=== PATIENT | female | born 1940 | race Caucasian/White ===

== ENCOUNTER → 2016-03-18 | Outpatient (CLI) | payer OTHER ==
--- NOTE | 2016-03-18 12:31 | MA ---
Screening Digital Mammogram With iCAD Analysis Clinical Indications: Routine screening. The patient has a personal history of right breast cancer t reated with lumpectomy and radiation. She has had a benign left breast biopsy. A sister was diagnosed with breast cancer in her 50s and 2 aunts were also diagnosed with breast cancer. Technique: Standard cephalocaudal and mediolateral oblique projections were obtained. This examinatio n was processed by the iCAD computer-aided detection system. Comparison: February 2015, February 2014, February 2013, February 2012, February 2011, February 2010, 2009. Breast density: Type B; Scattered fibroglandular densities. Findings: CAD was reviewed. Architectural change at the right breast lumpectomy site is stable. No m asses, suspicious calcifications or other signs of malignancy are identified. There has been no sign ificant change in the appearance of either breast. Impression: Benign post lumpectomy mammography. BI-RADS 2. Recommendation: Routine mammographic screening in one year as long as physical examination is negativ [facility] will send a result letter to the patient. Negative mammography should not preclude additional workup of a clinically suspicious finding. The patient's information is entered into a reminder system with a target due date for her next mammo gram.
== END ==
LOC: FIMAGING 10:16
DX: Z12.31 Encounter for screening mammogram for malignant neoplasm of breast (principal); Z85.3 Personal history of malignant neoplasm of breast; Z80.3 Family history of malignant neoplasm of breast
CPT/HCPCS: G0202

== ENCOUNTER → 2017-04-28 | Outpatient (CLI) | payer OTHER | LOC: FIMAGING 09:00 | PROVIDERS: ATTEND Internal Medicine Hematology & Oncology | DX: Z12.31 Encounter for screening mammogram for malignant neoplasm of breast (principal); Z85.3 Personal history of malignant neoplasm of breast; Z80.3 Family history of malignant neoplasm of breast ==

== ENCOUNTER → 2017-05-08 | Outpatient (CLI) | payer OTHER | LOC: FIMAGING 08:27 | PROVIDERS: ATTEND Internal Medicine Hematology & Oncology | DX: N63.24 Unspecified lump in the left breast, lower inner quadrant (principal) ==

== ENCOUNTER → 2018-05-10 | Outpatient (CLI) | payer OTHER | LOC: FIMAGING 09:24 | PROVIDERS: ATTEND Internal Medicine Hematology & Oncology | DX: Z12.31 Encounter for screening mammogram for malignant neoplasm of breast (principal); Z85.3 Personal history of malignant neoplasm of breast; Z13.820 Encounter for screening for osteoporosis; M81.0 Age-related osteoporosis without current pathological fracture ==